=== PATIENT | male | born 1970 | race Two or more races ===

== ENCOUNTER 2017-05-06 01:15 | Emergency (ER) | payer SELFPAY ==
[~2017-05-06] VITALS: Ht 188 cm; Wt 97.0 kg
[2017-05-06 01:17] VITALS: Ht 188 cm; Wt 97.0 kg
--- NOTE | 2017-05-06 02:45 | ERA ---
ER Documentation Chief Complaint Date/Time DATE: 05/06/17 TIME: 02:42 Chief Complaint unable to sleep x 4 days. Given Xanax without relief. HPI Patient presents with a chief complaint of insomnia 4 days. Patient has had symptoms in the past. Patient states that he has had periods of sleep and has woken up. Saw primary care 3 days ago and was given Xanax which she states helped his symptoms. However patient states that the medication is not helping tonight. Patient is being woken up by a jolt. States that he is not tired right now. Denies wanting to hurt self or others. Patient has no other complaints and describes no other associated manifestations. Nursing notes have been reviewed and are consistent with history given. ROS All systems reviewed and are negative except as per history of present illness. PMhx/Soc Medical and Surgical Hx: pt denies Surgical Hx History of Surgery: No Anesthesia Reaction: No Hx Neurological Disorder: No Hx Respiratory Disorders: No Hx Cardiac Disorders: No Hx Psychiatric Problems: Yes (Hx of insomnia >5 yrs prior) Hx Miscellaneous Medical Probl: No Hx Alcohol Use: Yes (light drinker) Hx Substance Use: No Hx Tobacco Use: No Smoking Status: Never smoker Physical Exam Vitals Vital Signs Date Time Temp Pulse Resp B/P Pulse Ox O2 Delivery O2 Flow Rate FiO2 05/06/17 01:17 97.9 79 18 134/85 98 Physical Exam Const: Well-appearing. No acute distress. Head: Normocephalic, Atraumatic. Eyes: Non-injected; No discharge. EOMI and DOLORES bilaterally. Ears: Normal External Ears, EACs clear, TM normal bilaterally without erythema. Nose: Normal external nose; no discharge, or sinus tenderness. Oral: No oral edema visualized. Mucous membranes moist and pink. Neck: No cervical lymphadenopathy, or masses palpated. Supple ~ No meningismus. Pulm: Good air movement in upper and lower respiratory tracts. Clear to auscultation bilaterally. No dyspnea or stridor. Cardio: Regular rate and rhythm; No murmurs, gallops or rubs auscultated. Radial pulses 2+ bilaterally. No cyanosis noted. Capillary refill less than 2 seconds. Abd: Normal bowel sounds. Soft, non tender, non distended. MS: Normal motor strength, normal tone with gross examination. Skin: No petechiae or rashes. Good turgor. Back: No midline, flank or CVA tenderness. Ext: No edema. Normal movement of all extremities grossly observed. Neur: Neurovascularly intact bilaterally. Psych: Normal Mood and Affect. Procedures/MDM Well-appearing 46-year-old male in no acute distress presenting with a chief complaint of insomnia as described in history and physical examination. Patient has been prescribed Xanax. I do not believe that there is any further medication indicated at this time. I have recommended that the patient follow- up with the primary care physician that he saw 3 days ago for a referral to a specialist and to update him on the efficacy of the medications that were prescribed to him. I have little suspicion for patient harming himself or others, acute intracranial pathology or bacterial involvement.Patient states he has a ride home. I have spoke with the patient regarding their condition and future management. They have verbally responded that they understand their status and treatment plan. The patients vitals are stable, and their current condition is appropriate for discharge. The patient will be given discharge instructions with return precautions. Departure Diagnosis: Primary Impression: Insomnia Qualified Code: G47.00 - Insomnia, unspecified type Condition: Stable Patient Instructions: Treating Insomnia Additional Instructions: Follow up with your PCP within the next 1-3 days for a more thorough evaluation and a possible referral to a specialist. Return the the emergency department immediately if symptoms worsen or change. If you have any questions regarding medications, ask your pharmacist or us before you leave. If any adverse reactions occur while taking your medications, discontinue the treatment and return to the emergency department immediately. Take your medications as directed, and complete the entire course of treatment. TONG FERNÁNDEZ PA-C May 06, 2017 02:45
[2017-05-06 02:53] VITALS: BP 127/81; PULSE 85; RESP 18; TEMP 98.1
== END 2017-05-06 02:53 | disposition home or self-care (01) ==
LOC: FTE 01:15
DX: G47.00 Insomnia, unspecified (principal)
CPT/HCPCS: 99283